=== PATIENT | female | born 1975 | race Caucasian/White ===

== ENCOUNTER 2025-08-13 01:25 | Emergency (ER) | payer OTHER, SELFPAY ==
--- NOTE | 2025-08-13 02:50 | DOWNTIME ---
There was a [email or web address] Downtime on 08/13/2025 from 0100 to 08/13/2025 at 0215. Downtime documentation of patient's care, including medication administrations, has been reconciled in the electronic record per guidelines. Refer to the
patient's paper chart under the miscellaneous tab to see printed paper medication records and downtime forms.
--- NOTE | 2025-08-13 02:51 | ED.GENMED ---
History of Present Illness
General
Chief Complaint: Extremity Pain (non-traumatic)
Source: patient
Exam Limitations: none
Nursing documentation reviewed up to this point in time: agreed with
History of Present Illness
History of Present Illness:
Note:
CHIEF COMPLAINT(S)
Pain in left calf.
HISTORY OF PRESENT ILLNESS
The patient is a 50-year-old female who presents with pain in her left calf, persisting for approximately three and a half weeks. She reports the pain intensified suddenly yesterday. The pain is described as dull when in a static position, but it
becomes sharp with movement or when pressure is applied, such as when the knee is flexed. The patient attempted to alleviate the discomfort with topical treatments and medical marijuana lotion, noting mild relief. The pain is exacerbated by walking
or flexing the foot while driving, but remains manageable when resting without weight on it. Past activities include hiking more than a week ago, however, the pain started before this activity. The suspicion was raised by a friend about the
possibility of a deep vein thrombosis (DVT), although the patient was advised that this is less likely. An ultrasound examination has been requested to rule out blood clots.
CARE-UPDATE
08/13/25 - 02:54
Patient reports left knee pain potentially stemming from a recent hiking trip. Plan to obtain ultrasound and X-ray to further evaluate the suspected strain.
CARE-UPDATE
08/13/25 - 03:38
Patients left knee strain and left calf strain persist with no indication of deep vein thrombosis or fracture. Left knee X-ray and ultrasound show normal findings, with no signs of DVT observed.
Disposition:
SUMMARY OF ENCOUNTER
The patient, a 50-year-old female, presented to the emergency department with left calf pain persisting for over three weeks and exacerbated during the prior day. The pain was initially suspected to be associated with a deep vein thrombosis (DVT),
but this diagnosis was ruled out through ultrasound imaging. An X-ray was also performed to exclude the possibility of a fracture. Both imaging results were unremarkable. The patients condition was evaluated as left calf strain and knee pain. The
patient reported mild relief from the pain using medical marijuana lotion and other topical treatments.
DISPOSITION
Discharge.
ASSESSMENT
The patients left calf pain is consistent with a musculoskeletal strain in the absence of DVT or fracture.
PLAN
The patient is to follow-up with orthopedics for further evaluation and management of the calf strain and knee pain.
INDEPENDENT REVIEW OF LABS AND INTERPRETATION OF TESTS
- My independent interpretation of the left knee X-ray shows normal findings with no indication of fracture.
- My independent interpretation of the ultrasound shows no signs of deep vein thrombosis.
PATIENT EDUCATION AND COUNSELING
The patient was educated on the diagnosis of a left calf strain and knee pain. They were advised on precautionary measures to avoid exacerbating the condition, including resting the affected limb.
FOLLOW-UP INSTRUCTIONS
The patient is to follow up with orthopedics.
MEDICATION RECONCILIATION
The patient has been using topical treatments and medical marijuana lotion for pain relief.
MEDICAL DECISION MAKING
- Complexity of Data Reviewed: Chronic conditions affecting care.
- Differential Diagnosis: Deep vein thrombosis, Musculoskeletal strain, Fracture.
- Data:
- Category 1: My independent interpretation of X-ray and ultrasound images confirmed no DVT or fracture.
- Risk: Consideration of Admission/Observation was considered, but outpatient management deemed safe due to lack of acute concerns.
DIAGNOSIS
- Left calf strain (ICD-10: S86.819A)
- Knee pain (ICD-10: M25.569)
Past History
Past History
ED Past Medical History: Other (R eye no Iris. Now has cataract, Hypoglycemic)
ED Past Surgical History:
Social History
Tobacco: Former smoker
Alcohol: Occasional
Personal:
Living: with family
Phy Exam
Physical Exam
Physical Exam:
Physical Exam
General: no apparent distress, not acutely ill
Neck: supple. no meningeal signs. normal posterior pharynx
Heart: . equal radial
pulses.
HEENT: Pupils equal round reactive to light, EOMI
Lungs: no acute respiratory distress. clear bilaterally
Abdomen: normal bowel sounds. not tender. no CVAT
Neuro: alert and oriented. no focal neurological deficits cranial nerves II through XII intact
Skin: no rash
Psychiatric: well kept. interactive and cooperative
Extremities: no edema. Mild left calf tenderness. negative homans. good distal pulses
Course
Orders/Labs/Results
Orders:
Orders
08/13/25 02:49
CR Knee - Left 4 Or More View* Urgent
Comment:
Reason For Exam: left knee pain
08/13/25 02:50
US Periph Venous LOWER Ext LT Urgent
Comment:
Reason For Exam: left calf/knee pain
*Pulse Oximetry
Patient hypoxic: no
*Critical Care Note
Total Time (30-74mins, 75-104mins- exclusive of procedures): Not Applicable
ED Attending Note
-
Portions of this chart may have been created with voice recognition software.� Occasional wrong word or��sound alike� substitutions may have occurred due to the inherent limitations of voice recognition software.
Discharge Plan
Departure
Patient Disposition: Home (Routine Discharge)
Date of Disposition: 08/13/25
Time of Disposition: 03:36
Patient with high blood pressure during this ER visit?: No
Condition: Good
Discharge Problem:
Strain of left calf muscle
Instructions: Muscle and Bone Pain (DC)
Prescriptions:
No Action
hydrocodone-acetaminophen [Vicodin] 1 EACH tablet
1 ea PO Q4HPRN PRN (Reason: Pain) Qty: 15 0RF
pantoprazole [Protonix] 40 mg tablet,delayed release (DR/EC)
40 mg PO DAILY 28 Days Qty: 28 0RF
Referrals:
Jean Edwards MD [Active, Orthopedics] - Call in 1-3 days for appt
Sarahi Urbina MD [Family Provider, Internal Medicine]
Interventions
Interventions:
ED-Skin Assessment Last Done: 08/13/25 03:35
ED-Peripheral Vascular Assessment Last Done: 08/13/25 03:35
ED-Musculoskeletal Assessment Last Done: 08/13/25 03:35
Discharge Date and Time
Print Language: ARABIC
[2025-08-13 03:55] VITALS: BP 128/72
== END 2025-08-13 03:56 | disposition home or self-care (01) ==
LOC: EMR 01:25
PROVIDERS: EMERGENCY PHYSICIAN Emergency Medicine; FAMILY PHYSICIAN Internal Medicine
DX: S86.112A Strain of other muscle(s) and tendon(s) of posterior muscle group at lower leg level, left leg, initial encounter (principal); X50.1XXA Overexertion from prolonged static or awkward postures, initial encounter; Z87.891 Personal history of nicotine dependence
CPT/HCPCS: 99284; 73564; 93971